=== PATIENT | male | born 1975 | race Native Hawaiian/Other Pacific Islander ===

== ENCOUNTER 2022-07-09 09:01 | Emergency (ER) | payer OTHER ==
[~2022-07-09] VITALS: Ht 182.9 cm; Wt 95.3 kg
[2022-07-09 09:37] VITALS: BP 135/87; TEMP 98.3
[2022-07-09 10:22] LABS: PLATELET COUNT 292 K/uL (142-355)
== END 2022-07-09 13:00 | disposition home or self-care (01) ==
LOC: ED 09:01
PROVIDERS: Emergency Medicine
DX: F10.129 Alcohol abuse with intoxication, unspecified (principal)
CPT/HCPCS: 36415; 80053; 80307; 80320; 82150; 82550; 83690; 85027; 85379; 93005; 96361; 96374; 99284; J2405